=== PATIENT | female | born 1995 | race Caucasian/White ===

== ENCOUNTER 2018-02-17 02:32 | Emergency (ER) | payer OTHER, SELFPAY ==
[2018-02-17] MEDS ORDERED: Lorazepam 1 MG TAB ONE (04:28)
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
== END 2018-02-17 04:35 | disposition home or self-care (01) ==
LOC: ERS 02:32
DX: S00.83XA Contusion of other part of head, initial encounter (principal); S80.12XA Contusion of left lower leg, initial encounter; S80.11XA Contusion of right lower leg, initial encounter; F41.9 Anxiety disorder, unspecified; F32.9 Major depressive disorder, single episode, unspecified; Y04.0XXA Assault by unarmed brawl or fight, initial encounter
CPT/HCPCS: 70450; 72125